=== PATIENT | male | born 1980 | race Two or more races ===

== ENCOUNTER 2016-08-28 16:22 | Emergency (ER) | payer OTHER ==
[2016-08-28 17:53] LABS: BILIRUBIN,URINE NEGATIVE (NEGATIVE)
[2016-08-28 17:54] LABS: UA CHARGE (STRIP ONLY) YES; UR CULTURE IF IND NOT INDICATED
[2016-08-28 17:59] LABS: BASOPHILS % (AUTO) 0.6 %; EOSINOPHILS # (AUTO) 0.1 10^3/uL (0.0-0.7); EOSINOPHILS % (AUTO) 1.5 %; HCT - HEMATOCRIT 38.3 % (42.0-52.0); HGB - HEMOGLOBIN 12.7 g/dL (14.0-18.0); LYMPHOCYTES # (AUTO) 1.6 10^3/uL (1.5-3.5); LYMPHOCYTES % (AUTO) 20.8 %; MEAN CORPUSCULAR HEMOGLOBIN 28.2 pg (27.0-31.0); MEAN CORPUSCULAR HGB CONC 33.2 g/dL (32.0-36.0); MEAN CORPUSCULAR VOLUME 85.1 fL (80.0-94.0); MEAN PLATELET VOLUME 8.1 fL (7.4-11.4); MONOCYTES # (AUTO) 0.4 10^3/uL (0.0-1.0); MONOCYTES % (AUTO) 4.8 %; NEUTROPHILS # (AUTO) 5.6 10^3/uL (1.5-6.6); NEUTROPHILS % (AUTO) 72.3 %; NUCLEATED RED BLOOD CELLS AUTO 0.1 /100WBC; RED CELL DISTRIBUTION WIDTH 13.8 % (12.0-15.0); UNCORRECTED WHITE BLOOD COUNT 7.8 x10^3/uL; WHITE BLOOD COUNT 7.8 x10^3/uL (4.8-10.8)
[2016-08-28 18:12] LABS: ALBUMIN/GLOBULIN RATIO 1.5 (1.0-2.2); BILIRUBIN,TOTAL 0.4 mg/dL (0.2-1.0); CALCIUM 9.3 mg/dL (8.5-10.3); CREATININE 1.1 mg/dL (0.6-1.2); POTASSIUM 3.8 mmol/L (3.5-5.0); TOTAL PROTEIN 7.4 g/dL (6.7-8.2)
--- NOTE | 2016-08-28 18:45 | ED Physician Documentation ---
PD HPI ABD PAIN - Stated complaint Stated Complaint: STOMACH PAIN - Chief complaint Chief Complaint: Abd Pain - History obtained from History obtained from: Patient - History of Present Illness Timing - onset: How many hours ago (few), Today (just after lunchtime) Timing - details: Gradual onset, Still present Quality: Cramping, Aching, Pain Location: Epigastric Radiation: Upper back Improved by: No: Position Worsened by: No: Position Associated symptoms: Nausea. No: Fever, Vomiting, Diarrhea, Constipation Similar symptoms before: Has not had sx before Recently seen: Not recently seen Review of Systems Constitutional: denies: Fever, Chills Nose: denies: Rhinorrhea / runny nose, Congestion Throat: denies: Sore throat Respiratory: denies: Cough GI: reports: Nausea. denies: Abdominal Pain, Vomiting, Diarrhea : denies: Dysuria, Frequency Skin: denies: Rash, Lesions Neurologic: denies: Generalized weakness PD PAST MEDICAL HISTORY - Past Medical History GI: None - Present Medications Home Medications: Ambulatory Orders Medication Instructions Recorded Confirmed Famotidine [Pepcid] 20 mg PO ONCE #30 tablet 08/28/16 HYDROcod/ACETAM 5/325 [[place] 5/325] 1 tab PO Q6H PRN #15 tablet 08/28/16 Ondansetron HCl [Zofran] 4 mg PO Q6H PRN #20 tablet 08/28/16 Sucralfate 1 gm PO QID #30 tablet 08/28/16 - Allergies Allergies/Adverse Reactions: Allergies Allergy/AdvReac Type Severity Reaction Status Date / Time No Known Drug Allergies Allergy Verified 08/28/16 16:44 PD ED PE NORMAL - Vitals Vital signs reviewed: Yes - General General: Alert and oriented X 3, Well developed/nourished, Other (appears uncomfortable) - HEENT HEENT: Pharynx benign - Neck Neck: Supple, no meningeal sign, No adenopathy - Cardiac Cardiac: RRR, No murmur - Respiratory Respiratory: Clear bilaterally - Abdomen Abdomen: Normal bowel sounds, Soft, Non distended, No organomegaly, Other ( tender epigastric area without guarding nor percussion tenderness. ) - Male Male : Deferred - Rectal Rectal: Deferred - Back Back: No CVA TTP - Derm Derm: Normal color, Warm and dry, No rash - Extremities Extremities: Normal ROM s pain, No edema, No calf tenderness / cord - Neuro Neuro: Alert and oriented X 3, No motor deficit, Normal speech Results - Vitals Vitals: Vital Signs - 24 hr 08/28/16 08/28/16 08/28/16 16:41 18:31 19:50 Temperature 36.7 C 36.6 C Heart Rate 56 L 52 L 53 L Respiratory 14 16 17 Rate Blood Pressure 112/67 129/62 123/82 H O2 Saturation 100 100 100 Oxygen O2 Source Room air - Labs Labs: Laboratory Tests 08/28/16 08/28/16 08/28/16 16:49 17:50 17:50 WBC 7.8 RBC 4.50 L Hgb 12.7 L Hct 38.3 L MCV 85.1 MCH 28.2 MCHC 33.2 RDW 13.8 Plt Count 257 MPV 8.1 Neut # 5.6 Lymph # 1.6 [place] # 0.4 Eos # 0.1 Baso # 0.0 Absolute Nucleated RBC 0.01 Nucleated RBCs 0.1 Sodium 136 Potassium 3.8 Chloride 101 Carbon Dioxide 28 Anion Gap 7.0 BUN 15 Creatinine 1.1 Estimated GFR (MDRD) 75 L Glucose 103 H Calcium 9.3 Total Bilirubin 0.4 AST 21 ALT 28 Alkaline Phosphatase 71 Total Protein 7.4 Albumin 4.4 Globulin 3.0 Albumin/Globulin Ratio 1.5 Lipase 13 L Urine Color YELLOW Urine Clarity CLEAR Urine pH 6.0 Ur Specific [place] >=1.030 H Urine Protein NEGATIVE Urine Glucose (UA) NEGATIVE Urine Ketones NEGATIVE Urine Occult Blood NEGATIVE Urine Nitrite NEGATIVE Urine Bilirubin NEGATIVE Urine Urobilinogen 0.2 (NORMAL) Ur Leukocyte Esterase NEGATIVE Ur Microscopic Review NOT INDICATED Urine Culture Comments NOT INDICATED - Rads (name of study) RUQ U/S Radiology: Prelim report reviewed (no acute process; GB normal. ) PD MEDICAL DECISION MAKING - ED course Complexity details: re-evaluated patient, considered differential (seems epigatric and presume stomach, but only mild change with GI cocktail. Labs are good and U/S shows normal GB. Given pain meds for the pain. He did have some nausea from that with emesis x 1 but is having less pain and doing better. To follow up with PMD. ), d/w patient Departure - Departure Disposition: 01 Home, Self Care Clinical Impression: Epigastric abdominal pain Condition: Stable Record reviewed to determine appropriate education?: Yes Instructions: ED Epigastric Pain UKO, ED Gastritis [facility]] Prescriptions: HYDROcod/ACETAM 5/325 [[place] 5/325] 1 tab PO Q6H PRN #15 tablet PRN Reason: Pain Famotidine [Pepcid] 20 mg PO ONCE #30 tablet Sucralfate 1 gm PO QID #30 tablet Ondansetron HCl [Zofran] 4 mg PO Q6H PRN #20 tablet PRN Reason: Nausea / Vomiting Comments: Frequent fluids and bland foods for several days. Famotidine daily for the next few weeks. Add sucralfate to coat the stomach several times a day as directed. Tylenol if needed for pain. Do not use any NSAIDs. Add hydrocodone if needed for pain. Off work for 1-2 days and follow-up with your primary care in the next couple of days. Forms: Activity restrictions Discharge Date/Time: 08/28/16 21:06
[2016-08-28] MEDS ORDERED: LIDOCAINE VISCOUS 2% 15 ML UDC MM STA (18:56)
[2016-08-28] MEDS ORDERED: ACETAMINOPHEN 325 MG TABLET PO STA (18:56)
[2016-08-28] MEDS ORDERED: MAG HYDROX/AL HYDROX/SIMETH 30 ML UDC PO STA (18:56)
[2016-08-28] MEDS ORDERED: LIDOCAINE VISCOUS 2% 15 ML UDC MM ONE (19:15)
[2016-08-28] MEDS ORDERED: MAG HYDROX/AL HYDROX/SIMETH 30 ML UDC ONE (19:15)
[2016-08-28] MEDS ORDERED: ACETAMINOPHEN 325 MG TABLET PO ONE (19:16)
[2016-08-28 19:52] VITALS: BP 123/82
[2016-08-28] MEDS ORDERED: FAMOTIDINE 20 MG TABLET PO STA (20:30)
[2016-08-28] MEDS ORDERED: HYDROmorphone 1 MG/ML SYRINGE IM STA (20:30)
[2016-08-28] MEDS ORDERED: HYDROcod/ACET 5/325 Prepack 6 PO ONE ×2 (20:30→20:57)
--- NOTE | 2016-08-28 20:30 | Ultrasound Preliminary Report ---
Exam: US ABDOMEN LIMITED IMPRESSION: Negative right upper quadrant ultrasound. [facility] SITE ID: [id number]
--- NOTE | 2016-08-28 20:33 | Ultrasound Report ---
EXAM: ABDOMEN ULTRASOUND LIMITED, RUQ EXAM DATE: 08/28/2016 07:57 PM. CLINICAL HISTORY: Upper abd pain abruptly today. COMPARISON: None. TECHNIQUE: Real-time scanning was performed with static images obtained. FINDINGS: Liver: Submitted images of liver demonstrate no focal lesions. Main portal vein flow: Hepatopetal. Gallbladder: No shadowing stones. No evidence of gallbladder wall thickening. Negative sonographic Mu rphy sign. Biliary System: CBD measures 3 mm. No intrahepatic or extrahepatic ductal dilatation. Other: The visualized pancreas and right kidney are unremarkable. IMPRESSION: Negative right upper quadrant ultrasound. [facility] Referring Provider Line: [phone] SITE ID: [id number]
[2016-08-28] MEDS ORDERED: HYDROmorphone 1 MG/ML SYRINGE ONE (20:57)
[2016-08-28] MEDS ORDERED: FAMOTIDINE 20 MG TABLET ONE (20:57)
== END 2016-08-28 21:06 | disposition home or self-care (01) ==
LOC: ED 16:22
DX: R10.13 Epigastric pain (principal)
CPT/HCPCS: 36415; 76705; 80053; 81003; 83690; 85025; 96372; 99283; 99284; A9270; J1170; 81001; 87086